=== PATIENT | male | born 1980 | race Caucasian/White ===

== ENCOUNTER 2018-10-20 07:55 | Outpatient (REF) | payer MEDICAID, SELFPAY ==
[2018-10-20 22:03] LABS: Abs Immature Grans 0.02 k/cumm (0.0-0.09); Absolute Basophil Count 0.02 k/cumm (0.0-0.2); Absolute Eosinophil Count 0.25 k/cumm (0.0-0.7); Absolute Lymphocyte Count 1.59 k/cumm (1.2-3.4); Absolute Monocyte Count 0.33 k/cumm (0.11-0.7); Absolute Neutrophil Count 1.91 k/cumm (1.2-6.7); Basophils % 0.5; Eosinophils % 6.1; HCT 42.6 % (40.0-50.0); HGB 14.1 g/dL (13.5-17.5); Immature Grans % 0.5; Lymphocytes % 38.6; Mean Corp. HGB Concentration 33.1 g/dL (32.0-36.0); Mean Corpuscular Hemoglobin 29.9 pg (27.0-33.0); Mean Corpuscular Volume 90.3 fL (80-95); Mean Platelet Volume 10.4 fL (8.0-11.0); Neutrophils % 46.3; Platelet Count 241 x1000/uL (130-400); RBC 4.72 m/cumm (4.50-6.00); RBC Distribution Width 13.1 % (11.8-14.1); White Blood Cell Count 4.12 k/cumm (4.4-10.8)
[2018-10-20 22:35] LABS: Anion Gap 6.7 mmol/L (3-11); BUN 8 mg/dL (7-18); CO2 29.3 mmol/L (21.0-32.0); CREATININE 0.99 mg/dL (0.70-1.30); Calcium 8.7 mg/dL (8.5-10.1); Calculated LDL 106 mg/dL; Chloride 108 mmol/L (98-107); Cholesterol 161 mg/dL (50-200); Glucose 95 mg/dL (70-100); HDL Cholesterol 43 mg/dL (40-60); Potassium 4.6 mmol/L (3.5-5.1); Sodium 144 mmol/L (136-145); TSH (W/Ref FT4) 2.79 uIU/mL (0.358-3.74); Triglyceride 64 mg/dL (30-150)
== END 2018-10-20 08:15 ==
LOC: NCHCN 07:55
PROVIDERS: Visit Provider Family Medicine
DX: F10.11 Alcohol abuse, in remission (principal); F90.9 Attention-deficit hyperactivity disorder, unspecified type; E66.9 Obesity, unspecified; F80.81 Childhood onset fluency disorder; Z00.00 Encounter for general adult medical examination without abnormal findings
CPT/HCPCS: 80048; 80061; 83721; 84443; 85025

== ENCOUNTER 2018-11-23 09:01 | Outpatient (REF) | payer MEDICAID, SELFPAY ==
[2018-11-23 21:45] LABS: Vitamin B12 555 pg/mL (193-986)
[2018-11-25 05:54] LABS: Vitamin D 25 Total 15.8 ng/ml (30-100)
== END 2018-11-23 09:21 ==
LOC: NCHCN 09:01
PROVIDERS: Visit Provider Nurse Practitioner Family
DX: F10.11 Alcohol abuse, in remission (principal); E66.9 Obesity, unspecified
CPT/HCPCS: 82306; 82607

== ENCOUNTER 2019-06-16 20:34 | Outpatient (REF) | payer MEDICAID, SELFPAY ==
[2019-06-16 21:16] LABS: Vitamin D 25 Total 23.3 ng/ml (30-100)
== END 2019-06-16 20:54 ==
LOC: NCHCN 20:34
PROVIDERS: Visit Provider Nurse Practitioner Family
DX: E55.9 Vitamin D deficiency, unspecified (principal)
CPT/HCPCS: 82306

== ENCOUNTER 2020-02-16 17:45 | Outpatient (REF) | payer MEDICAID, SELFPAY ==
[2020-02-16 22:00] LABS: Vitamin D 25 Total 25.3 ng/ml (30-100)
== END 2020-02-16 18:05 ==
LOC: NCHCN 17:45
PROVIDERS: Visit Provider Nurse Practitioner Family
DX: E55.9 Vitamin D deficiency, unspecified (principal)
CPT/HCPCS: 82306

== ENCOUNTER 2020-05-17 16:22 | Outpatient (REF) | payer MEDICAID, SELFPAY ==
[2020-05-17 22:14] LABS: Hemoglobin A1C 5.2 % (<5.7)
[2020-05-17 22:18] LABS: ALT 43 U/L (16-63); AST 33 U/L (15-37); Albumin 4.1 g/dL (3.4-5.0); Alkaline Phosphatase 68 U/L (46-116); Anion Gap 5.6 mmol/L (3-11); BUN 16 mg/dL (7-18); Bilirubin, Total 0.6 mg/dL (0.2-1.0); CO2 30.4 mmol/L (21.0-32.0); Calcium 9.3 mg/dL (8.5-10.1); Calculated LDL 134 mg/dL (<100); Chloride 105 mmol/L (98-107); Cholesterol 202 mg/dL (<200); Glucose 79 mg/dL (74-106); HDL Cholesterol 59 mg/dL (40-60); Potassium 4.5 mmol/L (3.5-5.1); Sodium 141 mmol/L (136-145); Triglyceride 49 mg/dL (<150)
== END 2020-05-17 16:23 | disposition home or self-care (01) ==
LOC: NCHCN 16:22
PROVIDERS: PCP Nurse Practitioner Family; Visit Provider Nurse Practitioner Family
DX: E55.9 Vitamin D deficiency, unspecified (principal); E66.9 Obesity, unspecified; Z00.00 Encounter for general adult medical examination without abnormal findings
CPT/HCPCS: 80053; 80061; 82306; 83036